=== PATIENT | male | born 1985 | race Caucasian/White ===

== ENCOUNTER 2016-05-23 12:17 | Emergency (ER) | payer OTHER ==
[~2016-05-23] VITALS: Ht 157.5 cm; Wt 77.5 kg
[2016-05-23 12:22] VITALS: Ht 157.5 cm; Wt 77.5 kg
[2016-05-23] MEDS ORDERED: LORA1TAB PO (14:53)
[2016-05-23] MEDS ORDERED: ERYTOPOI BOTH EYES (14:58)
[2016-05-23] MEDS ORDERED: LORAZEPAM 1 MG TAB PO ONE (15:00)
[2016-05-23] MEDS ORDERED: OLANZAPINE 5 MG TAB PO ONE (15:00)
--- NOTE | 2016-05-23 15:03 | ERD ---
ER Documentation Chief Complaint Date/Time DATE: 05/23/16 TIME: 14:59 Chief Complaint Complains of bilateral eye pain HPI This is a 30-year-old alcoholic who states that this morning he is gradually starting to have some visual hallucinations. He says his eyes are itching bilaterally and he seen "TV shows and bugs on the floor. The patient states he had one alcoholic drink last night but usually has 12 at night. The patient said he has had hallucinations like this before when he was going through alcohol withdrawal. He is not suicidal or homicidal has no headache shortness of breath chest pain no palpitations no shakiness no vomiting ROS All systems reviewed and are negative except as per history of present illness. Medications Home Meds Active Scripts Erythromycin* (Erythromycin* Ophthalmic) 1 Applic Oint, 1 APPLIC BOTH EYES QID for 7 Days, EA Prov:DARLENE HERNANDEZ DO 05/23/16 Lorazepam* (Lorazepam*) 1 Mg Tablet, 1 MG PO Q8H Y for ANXIETY, #10 TAB Prov:DARLENE HERNANDEZ DO 05/23/16 Allergies Allergies: Coded Allergies: No Known Allergy (Unverified , 05/23/16) PMhx/Soc History of Surgery: No Anesthesia Reaction: No Hx Neurological Disorder: No Hx Respiratory Disorders: No Hx Cardiac Disorders: No Hx Psychiatric Problems: Yes (bipolar) Hx Miscellaneous Medical Probl: No Hx Alcohol Use: Yes Hx Substance Use: No (denies) Hx Tobacco Use: No (denies) FmHx Family History: No coronary disease Physical Exam Vitals Vital Signs Date Time Temp Pulse Resp B/P Pulse Ox O2 Delivery O2 Flow Rate FiO2 05/23/16 12:22 98.3 124 20 150/90 99 Physical Exam Const: Well-developed, well-nourished Head: Atraumatic, normocephalic Eyes: Injected bilateral conjunctiva, PERRLA, EOMI, normal sclera, no nystagmus ENT: Normal External Ears, Nose and Mouth, moist mucus membranes. Neck: Full range of motion. No meningismus, no lymphadenopathy. Resp: Clear to auscultation bilaterally, no wheezing, rhonchi, rales Cardio: Regular rate and rhythm, no murmurs, S1 S2 present Abd: Soft, non tender x 4, non distended. Normal bowel sounds, no guarding or rebound, no pulsitile abdominal masses or bruits Skin: No petechiae or rashes, no ecchymosis , no maculopapular rash Back: No midline or flank tenderness Ext: No cyanosis, or edema, FROM x 4, normal inspection, neurovascularly intact x 4 Neur: Awake and alert, STR 5/5 x 4, sensation intact x 4, no focal findings, cerebellum intact Psych: Normal Mood and Affect, no signs of acute withdrawal Results 24 hrs Current Medications Medications (Trade) Dose Ordered Sig/Rach Route PRN Reason Start Time Stop Time Status Last Admin Dose Admin Lorazepam (Ativan) 1 mg ONCE ONCE PO 05/23/16 15:00 05/23/16 15:01 Olanzapine (Zyprexa) 5 mg ONCE ONCE PO 05/23/16 15:00 05/23/16 15:01 Procedures/MDM Patient is having some visual hallucinations due to alcohol withdrawal that is early. No evidence of acute withdrawal. The patient had the same symptoms before. He was seen by tele-psych at that time and was advised to take Ativan or Librium. I gave him some Ativan and Zyprexa here we will discharge her on Ativan. He is not a threat to self or others Departure Diagnosis: Primary Impression: Alcohol withdrawal Complication of substance-induced condition: with perceptual disturbance Qualified Code: F10.232 - Alcohol withdrawal, with perceptual disturbance Additional Impression: Hallucinations Condition: Stable Patient Instructions: Alcohol Withdrawal DARLENE HERNANDEZ DO May 23, 2016 15:03
[2016-05-23 16:20] VITALS: BP 135/88; PULSE 88; RESP 18; TEMP 98.3
== END 2016-05-23 16:20 | disposition home or self-care (01) ==
LOC: E/R 12:17
DX: F10.232 Alcohol dependence with withdrawal with perceptual disturbance (principal)
CPT/HCPCS: Z7502; Z7610; 99284

== ENCOUNTER 2017-02-04 22:14 | Emergency (ER) | payer OTHER ==
[~2017-02-04] VITALS: Ht 172.7 cm; Wt 84.0 kg
[~2017-02-04 22:14] MED LIST: ERYTOPOI BOTH EYES; LORA1TAB PO
[2017-02-04 22:20] VITALS: Ht 172.7 cm; Wt 84.0 kg
[2017-02-05] MEDS ORDERED: IBUP-1542 PO (01:13)
[2017-02-05] MEDS ORDERED: SILV20CR14 TOP (01:13)
[2017-02-05] MEDS ORDERED: CEPH-443 PO (01:13)
[2017-02-05] MEDS ORDERED: TRAM50TA2 PO (01:13)
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
[2017-02-05] MEDS ORDERED: DIPHTH/TET/ACEL PERTUSS (ADULT) 0.5 ML VIAL IM* ONE (01:30)
[2017-02-05] MEDS ORDERED: SILVER SULFADIAZINE 1% 25 GM CR TOP ONE (01:30)
[2017-02-05] MEDS ORDERED: LORAZEPAM 1 MG TAB PO ONE (01:30)
== END 2017-02-05 02:42 | disposition home or self-care (01) ==
LOC: FTE 22:14
DX: T25.222A Burn of second degree of left foot, initial encounter (principal); T25.221A Burn of second degree of right foot, initial encounter; T21.24XA Burn of second degree of lower back, initial encounter; X11.8XXA Contact with other hot tap-water, initial encounter; Y92.9 Unspecified place or not applicable
CPT/HCPCS: 16020; 90471; 90715; Z7502; Z7610

== ENCOUNTER 2017-02-23 13:54 | Emergency (ER) | payer OTHER ==
[~2017-02-23] VITALS: Ht 170.2 cm; Wt 84.1 kg
[~2017-02-23 13:54] MED LIST changes: +CEPH-443 PO; +IBUP-1542 PO; +SILV20CR14 TOP; +TRAM50TA2 PO
[2017-02-23 13:59] VITALS: Ht 170.2 cm; Wt 84.1 kg
[2017-02-23] MEDS ORDERED: morphine 4 MG/ML VIAL IV STA (15:29)
[2017-02-23] MEDS ORDERED: SOD CHLORIDE 0.9% 1,000 ML IV ONE (15:30)
[2017-02-23] MEDS ORDERED: BACITRACIN/POLYMYXIN 28.35 GM OINT TOP ONE (15:30)
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
[2017-02-23] MEDS ORDERED: TRAM50TA2 PO (15:52)
[2017-02-23] MEDS ORDERED: BACI28.421 TOP (15:52)
[2017-02-23 17:35] VITALS: BP 117/79; PULSE 78; RESP 20; TEMP 98.6
== END 2017-02-23 17:42 | disposition home or self-care (01) ==
LOC: E/R 13:54
DX: T25.322A Burn of third degree of left foot, initial encounter (principal); T21.24XA Burn of second degree of lower back, initial encounter; R40.2142 Coma scale, eyes open, spontaneous, at arrival to emergency department; R40.2252 Coma scale, best verbal response, oriented, at arrival to emergency department; R40.2362 Coma scale, best motor response, obeys commands, at arrival to emergency department; R00.2 Palpitations; X11.8XXA Contact with other hot tap-water, initial encounter; Y92.9 Unspecified place or not applicable
CPT/HCPCS: 93005; 96374; J2270; J7030; Z7502; Z7610